=== PATIENT | male | born 1960 | race Caucasian/White ===

== ENCOUNTER 2021-02-03 05:24 | Day surgery (SDC) | payer OTHER, SELFPAY ==
[2021-01-30 14:07] VITALS: BMI 23.4
--- NOTE | 2021-02-03 08:33 | WPDANESEPPF ---
Anes - Initial Pre Proc Eval Procedure: Operation Date: 02/03/21 10:00 Proposed Procedures p Colonoscopy - Jeff Ambrose MD Date/Time: 02/03/21 08:33 Surgeon: Jeff Ambrose MD Pre Op Diagnosis: occult GI bleed Patient Data Age: 60 Gender: M Height: 1.7 m Weight: 68 kg Allergies Allergy/AdvReac Type Severity Reaction Status Date / Time No Known Allergies Allergy Verified 02/03/21 09:16 Home Medications Medication Instructions Recorded Confirmed Type lisinopril-hydrochlorothiazide 1 tablet PO DAILY 01/30/21 01/30/21 History nbmgzufkcxps-xzr-gqri-FA-vit K 1 tablet PO DAILY 01/30/21 01/30/21 History [Adults Multivitamin] omega-3 fatty acids-vitamin E 1 cap PO BID 01/30/21 01/30/21 History [Fish Oil] simvastatin 40 mg PO HS 01/30/21 01/30/21 History tramadol 50 mg PO Q8H PRN 01/30/21 01/30/21 History Patient hx anesthesia problems: none Family hx anesthesia problems: none PMFSH Past Medical History Medical History (Updated 02/03/21 @ 08:35 by Lul Hawkins MD) HTN (hypertension) Hypercholesterolemia Social History Social History Smoking packs per day: 2 Smoking cigarettes per day: 40.0 Years smoked: 35 Smoking pack-years: 70.00 Smoking status: Former smoker Tobacco type: cigarettes Substance use: never Substance use type: does not use Living arrangements: with family Spiritual care concerns: No Anes - Eval Final PreProcedure Day of Procedure 02/03/21 08:33 Patient weight: overweight Heart: regular rate and rhythm Lungs: clear to auscultation and normal air movement Airway: Mallampati scale class II Neurological: alert and oriented Last oral intake: >/= 8 hours ASA classification: II Emergent: no Anesthetic plan: proceed Anesthesia type and monitoring: general GIVS Informed Consent: The patient's anesthetic plan and its attendant risks and benefits were discussed with the patient/family/POA. Questions were solicited and answers provided to the satisfaction of the patient/family/POA.
[2021-02-03 09:17] VITALS: BP 135/90; PULSE 74; RESP 20; TEMP 35.9; O2SAT 99; BMI 23.5
[2021-02-03] MEDS: LACTATED RINGERS 1,000 ML 150 ML IV CONT (09:34)
--- NOTE | 2021-02-03 10:01 | WPDGICN ---
Assessment and Plan Assessment and plan (1) Encounter for screening colonoscopy: Code(s): Z12.11 - Encounter for screening for malignant neoplasm of colon Status: Acute Assessment and Plan: Patient presents for screening colonoscopy. He has never had a colonoscopy before for. Further recommendations will be given after endoscopy. (2) Occult blood in stools: Code(s): R19.5 - Other fecal abnormalities Status: Acute Assessment and Plan: Occult blood in stool identified on routine screening exam. Plan is for colonoscopy to assess more thoroughly. GI Consult Note Consult date/time: 02/03/21 10:01 HPI: Noel Paige is a 60 year old male Presents for screening colonoscopy. Patient's current weight appetite bowel movements are normal. He denies abdominal pain has had no visible blood in his stools. Routine testing revealed occult blood positive in his stool. Family history is noncontributory. He presents today for screening colonoscopy. Review of Systems Review of Systems: All systems reviewed & are unremarkable except as noted in HPI and below PMFSH Past Medical History Medical History (Updated 02/03/21 @ 10:02 by Jeff Ambrose MD) HTN (hypertension) Hypercholesterolemia Social History Social History Smoking packs per day: 2 Smoking cigarettes per day: 40.0 Years smoked: 35 Smoking pack-years: 70.00 Smoking status: Former smoker Tobacco type: cigarettes Substance use: never Substance use type: does not use Living arrangements: with family Spiritual care concerns: No Meds Home Medications and Allergies Home Medications Medication Instructions Recorded Confirmed Type lisinopril-hydrochlorothiazide 1 tablet PO DAILY 01/30/21 01/30/21 History kpdkwkzaykkx-yzu-aoei-FA-vit K 1 tablet PO DAILY 01/30/21 01/30/21 History [Adults Multivitamin] omega-3 fatty acids-vitamin E 1 cap PO BID 01/30/21 01/30/21 History [Fish Oil] simvastatin 40 mg PO HS 01/30/21 01/30/21 History tramadol 50 mg PO Q8H PRN 01/30/21 01/30/21 History Allergies Allergy/AdvReac Type Severity Reaction Status Date / Time No Known Allergies Allergy Verified 02/03/21 09:16 Vital Signs Vital Signs - 24 hr 02/03/21 09:17 Temperature 96.7 F L Pulse Rate 74 Respiratory Rate 20 Blood Pressure 135/90 Pulse Oximetry 99 Exam Narrative: Physical exam reveals patient be alert. Vital signs stable. HEENT exam is unremarkable. Lungs are clear to auscultation and percussion. Heart is without murmur or extra sounds. Abdominal exam bowel sounds are present soft nontender with no organomegaly. Digital external rectal exam normal.
[2021-02-03] MEDS: BENZOCAINE (*SP) 60 ML SPRAY CAN (HURRICAINE) 1 SPRAY MUCOUS MEM (10:09)
[2021-02-03 10:22] VITALS: BP 112/53; PULSE 71; RESP 15; O2SAT 98
[2021-02-03 10:32] VITALS: BP 115/76; PULSE 70; RESP 14; O2SAT 99
[2021-02-03 10:42] VITALS: BP 115/76; PULSE 70; RESP 14; O2SAT 99
== END 2021-02-03 10:58 | disposition home or self-care (01) ==
PROVIDERS: PCP Family Medicine; Visit Provider Internal Medicine Gastroenterology
PROC: 0DJD8ZZ Inspection of Lower Intestinal Tract, Via Natural or Artificial Opening Endoscopic (ICD-10-PCS; CPT 45378; principal; 2021-02-03 10:00)
DX: R19.5 Other fecal abnormalities (principal); K64.8 Other hemorrhoids; I10 Essential (primary) hypertension; E78.00 Pure hypercholesterolemia, unspecified; Z87.891 Personal history of nicotine dependence
CPT/HCPCS: 45378; J2704; J7120

== ENCOUNTER 2023-09-06 12:18 | Outpatient (CLI) | payer OTHER, SELFPAY ==
--- NOTE | ~2023-09-06 | XR_ITS ---
Clinical Indication: Cough PA and lateral views of the chest: Comparison: None Findings: There is an abnormal mass at the right paratracheal stripe or right suprahilar region measu ring approximately 9 cm in maximum diameter. Probable calcified right lung granulomas noted. Lungs ar e otherwise clear. Bones and soft tissues are unremarkable. Impression: 9 cm right paratracheal stripe or right suprahilar mass. This is most consistent with neoplastic lesi on. Contrast-enhanced chest CT recommended for further evaluation. Findings discussed with Dr. Villegas at the time of this reading. Reviewed, dictated and finalized at location M. Impression: 9 cm right paratracheal stripe or right suprahilar mass. This is most consisten t with neoplastic lesion. Contrast-enhanced chest CT recommended for further ev aluation. Findings discussed with Dr. Villegas at the time of this reading.
== END 2023-09-06 12:19 ==
PROVIDERS: PCP Family Medicine; Visit Provider Family Medicine
DX: R05.9 Cough, unspecified (principal); R60.9 Edema, unspecified
CPT/HCPCS: 71046

== ENCOUNTER 2023-09-10 07:29 | Outpatient (CLI) | payer OTHER, SELFPAY ==
--- NOTE | ~2023-09-10 | CT_ITS ---
EXAMINATION:CT diagnostic chest w con DATE: 09/10/2023 07:50 INDICATION: Other nonspecific abnormal finding in lung field. TECHNIQUE: Computed tomography (CT) of the chest was performed with 75 mL Omnipaque 350 intravenous c ontrast. Automated exposure control and iterative reconstruction technique were employed. The dose-le ngth product (DLP) was 222.80 mGy-cm. COMPARISON: Chest 2 views 09/06/2023 FINDINGS: There is moderate emphysema. There is a 9.8 x 8.5 cm mass centered at the right hilum with invasion of the right mainstem bronchus. There is severe mass effect on superior vena cava. There is mass effect on the right pulmonary artery. Calcified lung nodules and calcified hilar lymph nodes are consistent with old granulomatous disease. There is mild bilateral gynecomastia. The heart size is n ormal. There is a trace pericardial effusion. There is a small sliding hiatal hernia. There is a lipo ma in the right rotator cuff musculature. There is severe cervical spondylosis and mild thoracic spon dylosis. IMPRESSION: 1. 9.8 cm mass centered at the right hilum, consistent with primary bronchogenic carcinoma. Bronchosc opy is recommended. 2. Moderate emphysema. Reviewed, dictated and finalized at location E. IMPRESSION: 1. 9.8 cm mass centered at the right hilum, consistent with primary bronchogeni c carcinoma. Bronchoscopy is recommended. 2. Moderate emphysema.
[2023-09-10 07:47] LABS: Estimated Glomerular Filt Rate > 60
== END 2023-09-10 07:30 | disposition home or self-care (01) ==
PROVIDERS: PCP Family Medicine; Visit Provider Family Medicine
DX: R91.8 Other nonspecific abnormal finding of lung field (principal); J43.9 Emphysema, unspecified
CPT/HCPCS: 71260; Q9967